=== PATIENT | female | born 1980 | race Caucasian/White ===

== ENCOUNTER → 2021-09-22 | Outpatient (CLI) | payer OTHER ==
[~2021-09-22] MED LIST: IBUP200C89 PO; LORA1TAB4 PO; ONDA-83 PO
== END ==
LOC: M LABSMTC 09:22
PROVIDERS: ATTEND Anesthesiology
DX: Z01.818 Encounter for other preprocedural examination (principal); Z11.52 Encounter for screening for COVID-19

== ENCOUNTER 2021-09-26 10:44 | Day surgery (SDC) | payer OTHER ==
[~2021-09-26] VITALS: Ht 165.1 cm; Wt 57.8 kg
[~2021-09-26 10:44] MED LIST changes: +NS 1,000 ML IV ONE
[2021-09-26] MEDS ORDERED: propofoL 200 MG/20 ML VIAL As Ordered ONE ×4 (12:12→13:26)
[2021-09-26] MEDS ORDERED: LIDOCAINE 2% 100MG/5ML SDV (FOR ANES.) As Ordered ONE (12:12)
[2021-09-26] MEDS ORDERED: propofoL 500 MG/50 ML VIAL As Ordered ONE (13:15)
[2021-09-26 14:29] VITALS: BP 111/67
== END 2021-09-26 14:27 | disposition home or self-care (01) ==
LOC: M OPP 10:44
PROVIDERS: ATTEND Internal Medicine Gastroenterology
DX: K64.8 Other hemorrhoids (principal); K92.1 Melena; R19.4 Change in bowel habit; K29.70 Gastritis, unspecified, without bleeding; R13.10 Dysphagia, unspecified; Z90.710 Acquired absence of both cervix and uterus; Z98.51 Tubal ligation status; Z79.899 Other long term (current) drug therapy